=== PATIENT | female | born 1975 | race African-American/Black ===

== ENCOUNTER 2016-09-06 22:19 | Emergency (ER) | payer SELFPAY ==
[2016-09-06 22:52] VITALS: BP 121/73
--- NOTE | 2016-09-06 23:18 | PHYS DOC ---
Past Medical History Past Medical History: No Pertinent History Past Surgical History: Hysterectomy Alcohol Use: None Drug Use: None Adult General Chief Complaint Chief Complaint: ABSCESS HPI HPI Patient is a 41 year old female presents emergency department stating that she has an abscess under her left axillary. She states that she's had this before. She states that she noticed this on Friday. She states it is becoming larger and very tender. She denies any drainage or discharge from the site. Patient denies numbness or tingling into her hand. Review of Systems Review of Systems Constitutional: Denies fever or chills [] Eyes: Denies change in visual acuity, redness, or eye pain [] HENT: Denies nasal congestion or sore throat [] Respiratory: Denies cough or shortness of breath [] Cardiovascular: No additional information not addressed in HPI [] GI: Denies abdominal pain, nausea, vomiting, bloody stools or diarrhea [] : Denies dysuria or hematuria [] Musculoskeletal: Denies back pain or joint pain [] Integument: Denies rash or skin lesions. C/o abscess to the left axilla Neurologic: Denies headache, focal weakness or sensory changes [] Current Medications Current Medications Current Medications Medications (Trade) Dose Ordered Sig/Wilman Start Time Stop Time Status Last Admin Dose Admin Acetaminophen/ Hydrocodone Bitart (Lortab 5/325) 1 tab 1X ONCE 09/06/16 23:30 09/06/16 23:31 DC 09/06/16 23:29 1 TAB Lidocaine/Sodium Bicarbonate (Buffered Lidocaine 1%) 20 ml 1X ONCE 09/06/16 23:30 09/06/16 23:31 DC 09/06/16 23:29 20 ML Allergies Allergies Allergies Coded Allergies Type Severity Reaction Last Updated Verified sulfamethoxazole Allergy Mild 05/06/16 Yes trimethoprim Allergy Mild 05/06/16 Yes Physical Exam Physical Exam Constitutional: Well developed, well nourished, no acute distress, non-toxic appearance. [] HENT: Normocephalic, atraumatic, bilateral external ears normal, oropharynx moist, no oral exudates, nose normal. [] Eyes: PERRLA, EOMI, conjunctiva normal, no discharge. [] Neck: Normal range of motion, no tenderness, supple, no stridor. [] Cardiovascular:Heart rate regular rhythm, no murmur [] Lungs & Thorax: Bilateral breath sounds clear to auscultation [] Skin: Warm, dry, no erythema, no rash. Abscess noted to the left axilla with redness, no drainage or discharge noted. Area appears to be fluctuant Back: No tenderness Extremities: No tenderness, no cyanosis, no clubbing, ROM intact, no edema. [] Neurologic: Alert and oriented X 3, normal motor function, normal sensory function, no focal deficits noted. [] Psychologic: Affect normal, judgement normal, mood normal. [] Current Patient Data Vital Signs Vital Signs Date Time Temp Pulse Resp B/P Pulse Ox O2 Delivery O2 Flow Rate FiO2 09/06/16 22:52 97.8 57 18 100 Room Air 97.8 EKG EKG [] Radiology/Procedures Radiology/Procedures [] Course & Med Decision Making Course & Med Decision Making Pertinent Labs and Imaging studies reviewed. (See chart for details) Instructed the patient to use warm moist packs to the area 4 times a day 20 minutes at a time. Recommended ibuprofen for pain and discomfort. Patient will also be provided hydrocodone. Patient will be placed on clindamycin. Recommended follow-up with surgeon next week for potential further removal of the abscess. Patient agrees with discharge instructions treatment regimens and follow-up recommendations. Since symptoms to return back to emergency department been provided Dragon Disclaimer Dragon Disclaimer This electronic medical record was generated, in whole or in part, using a voice recognition dictation system. Departure Departure Impression: Primary Impression: Abscess of axilla, left Disposition: 01 HOME, SELF-CARE Condition: STABLE Referrals: NO PCP (PCP) PEGGY DE LEON MD Patient Instructions: Abscess, Lnyz-[id number], Incision and Drainage, Care After Additional Instructions: Activity as tolerated. Medications prescribed. Hydrocodone will cause drowsiness do not take any be alert and oriented. Take all the antibiotics as prescribed until they're completely gone. Ibuprofen 800 mg every 8 hours. Follow-up with the surgeon next week. Return back to emergency prior signs symptoms of become worse. Scripts Hydrocodone/Apap 5-325 ([place] 5-325 Tablet)1 Each Tablet1 Tab PO PRN Q6HRS PRN PAIN #10 TAB Prov:ESTRELLITA POZO [employer]OS[employer]IC [employer]ID SUPERVISOR 09/06/16 Clindamycin Hcl 150 Mg Capsule3 Cap PO TID 10 Days Prov:ESTRELLITA POZO PHOSPHORIC [employer]ID SUPERVISOR 09/06/16 Incision and Drainage Incision and Drainage : Site: left axilla Blade Size: 11 I & D Procedure: betadine prep sterile drapes applied Progress 1% lidocaine plain 3 mL was injected into the site. Site was cleaned with Betadine. #11 blade was used to incise the area with thick yellow secretions noted. Dressing applied by nursing staff. ESTRELLITA POZO NP Sep 06, 2016 23:18
[2016-09-06] MEDS ORDERED: HYDROCODONE/APAP 5/325MG TABLET. PO ONE (23:30)
[2016-09-06] MEDS ORDERED: LIDOCAINE 1% / SOD BICARB 8.4% 20 ML VIAL. IJ ONE (23:30)
[2016-09-06] MEDS ORDERED: CLIN-44 PO (23:56)
[2016-09-06] MEDS ORDERED: HYDR-971 PO (23:56)
[2016-09-07] MEDS ORDERED: DIPHTH,PERTUSS(ACELL),TET TOX 0.5 ML DISP.SYRIN. VAX IM ONE
== END 2016-09-07 00:07 | disposition home or self-care (01) ==
LOC: ER 22:19
DX: L02.412 Cutaneous abscess of left axilla (principal); Z88.1 Allergy status to other antibiotic agents
CPT/HCPCS: 10060; 90471; 90715; 99283-25

== ENCOUNTER 2017-05-02 10:24 | Emergency (ER) | payer SELFPAY ==
[~2017-05-02] VITALS: Ht 162.6 cm; Wt 54.4 kg
[~2017-05-02 10:24] MED LIST: CLIN150C14 PO; HYDR-971 PO
[2017-05-02 10:33] VITALS: BP 131/72
--- NOTE | 2017-05-02 10:38 | PHYS DOC ---
Past Medical History Past Medical History: Other Additional Past Medical Histor: cervical cancer Past Surgical History: Hysterectomy Alcohol Use: None Drug Use: None Adult General Chief Complaint Chief Complaint: LOWER BACK PAIN OR INJURY HPI HPI Patient is a 41 year old -[place] female who presents with left-sided back pain that radiates down the left side of her leg. She denies any weakness or numbness in her leg, urinary incontinence. She denies any dysuria, fevers chills. She states she just woke up with this. She never had symptoms like this before. She is not tried anything for her symptoms as of yet. She states it's worse when she tries to sit down and flex at her hip. She points to the left lateral back and then down the back of her legs with the pain radiates to. Review of Systems Review of Systems Constitutional: Denies fever or chills [] Eyes: Denies change in visual acuity, redness, or eye pain [] HENT: Denies nasal congestion or sore throat [] Respiratory: Denies cough or shortness of breath [] Cardiovascular: No additional information not addressed in HPI [] GI: Denies abdominal pain, nausea, vomiting, bloody stools or diarrhea [] : Denies dysuria or hematuria [] Musculoskeletal: Positive for left sided back pain that radiates down the back of her leg. Integument: Denies rash or skin lesions [] Neurologic: Denies headache, focal weakness or sensory changes [] Endocrine: Denies polyuria or polydipsia [] Current Medications Current Medications Current Medications Medications (Trade) Dose Ordered Sig/[facility] Start Time Stop Time Status Last Admin Dose Admin Ibuprofen (Motrin) 600 mg 1X ONCE 05/02/17 11:00 05/02/17 11:01 Allergies Allergies Allergies Coded Allergies Type Severity Reaction Last Updated Verified sulfamethoxazole Allergy Mild 05/06/16 Yes trimethoprim Allergy Mild 05/06/16 Yes Physical Exam Physical Exam Constitutional: Well developed, well nourished, no acute distress, non-toxic appearance. [] HENT: Normocephalic, atraumatic, bilateral external ears normal, oropharynx moist, no oral exudates, nose normal. [] Eyes: PERRLA, EOMI, conjunctiva normal, no discharge. [] Neck: Normal range of motion, no tenderness, supple, no stridor. [] Cardiovascular:Heart rate regular rhythm, no murmur [] Lungs & Thorax: Bilateral breath sounds clear to auscultation [] Abdomen: Bowel sounds normal, soft, no tenderness, no masses, no pulsatile masses. [] Skin: Warm, dry, no erythema, no rash. [] Back: No midline tenderness, left lumbar lateral pain radiates down the back of her left leg, no CVA tenderness. [] Extremities: No tenderness, no cyanosis, no clubbing, ROM intact, no edema. Strength 5 out of 5 bilateral lower extremities with flexion and extension at the hip, knee, ankle. Neurologic: Alert and oriented X 3, normal motor function, normal sensory function, no focal deficits noted. [] Psychologic: Affect normal, judgement normal, mood normal. [] Current Patient Data Vital Signs Vital Signs Date Time Temp Pulse Resp B/P (MAP) Pulse Ox O2 Delivery O2 Flow Rate FiO2 05/02/17 10:33 98.1 72 16 97 Room Air 98.1 EKG EKG [] Radiology/Procedures Radiology/Procedures [] Impressions: Back pain Course & Med Decision Making Course & Med Decision Making Pertinent Labs and Imaging studies reviewed. (See chart for details) Her symptoms are consistent with sciatic type back pain. We'll try ibuprofen 600 mg every 8 hours for next 4-5 days in addition to Flexeril. Return precautions given, patient's agreeable Plan B discharged in stable condition at this time. Dragon Disclaimer Dragon Disclaimer This electronic medical record was generated, in whole or in part, using a voice recognition dictation system. Departure Departure Impression: Primary Impression: Back pain Condition: STABLE Referrals: NO PCP (PCP) Patient Instructions: Sciatica Additional Instructions: Your symptoms sound like a muscle spasm in her back that's going on the back of your leg. You will need take muscle relaxants and ibuprofen for the next several days. If you develop any weakness in your leg, numbness, inability controlling her bowel or bladders, you need to return back to the emergency department immediately. He should follow up with primary care physician within the week. Be careful with Flexeril as it can make you sleepy and impair your judgment. Please don't drive your car while taking this medicine. Make sure to sleepy during the day he can take it before you go to bed or break the tablets in half. Scripts Cyclobenzaprine Hcl (CYCLOBENZAPRINE HCL) 10 Mg Tablet 1 TAB PO TID Y for MUSCLE SPASMS, #30 TAB Prov: KERI JONES MD 05/02/17 Problem Qualifiers Primary Impression: Back pain Back pain location: low back pain Chronicity: acute Back pain laterality: left Sciatica presence: without sciatica Qualified Codes: M54.5 - Low back pain KERI JONES MD May 02, 2017 10:38
[2017-05-02] MEDS ORDERED: CYCLOBENZAPRINE 10 MG TABLET. PO ONE (11:00)
[2017-05-02] MEDS ORDERED: IBUPROFEN 600 MG TABLET. PO ONE (11:00)
[2017-05-02] MEDS ORDERED: CYCL10TA2 PO (11:01)
== END 2017-05-02 11:09 | disposition home or self-care (01) ==
LOC: ER 10:24
DX: M54.5 Low back pain (principal); Z88.2 Allergy status to sulfonamides; Z88.1 Allergy status to other antibiotic agents
CPT/HCPCS: 99283

== ENCOUNTER 2017-08-01 20:12 | Emergency (ER) | payer OTHER ==
[2017-08-01] MEDS: cefTRIAXone IM 250 MG VIAL IM ×2 (21:49)
[2017-08-01] MEDS: AZITHROMYCIN 250 MG TABLET. PO ×2 (21:50)
[2017-08-01] MEDS: metroNIDAZOLE 500 MG TABLET PO ×2 (21:50)
[2017-08-04 16:20] LABS: CHLAMYDIA PROBE Negative (Negative); GC PROBE Negative (Negative)
== END 2017-08-01 22:25 | disposition home or self-care (01) ==
LOC: ER 20:12
DX: Z20.2 Contact with and (suspected) exposure to infections with a predominantly sexual mode of transmission (principal); N76.0 Acute vaginitis; B96.89 Other specified bacterial agents as the cause of diseases classified elsewhere; Z88.2 Allergy status to sulfonamides; Z88.1 Allergy status to other antibiotic agents
CPT/HCPCS: 87491; 87591; 96372; 99284-25; J0696; Q0111; Q0144

== ENCOUNTER 2017-09-01 14:03 | Emergency (ER) | payer OTHER ==
[2017-09-01 15:32] LABS: BILIRUBIN,URINE NEGATIVE (NEG); CLARITY,URINE CLOUDY; COLOR,URINE ORANGE; GLUCOSE,URINE NEGATIVE (NEG); NITRITE,URINE POSITIVE (NEG); PROTEIN,URINE 100 mg/dL (NEG-TRACE)
[2017-09-01 16:01] LABS: BACTERIA,URINE MANY /HPF (0-FEW); WBC,URINE TNTC /HPF (0-4)
== END 2017-09-01 16:15 | disposition home or self-care (01) ==
LOC: ER 14:03
DX: N39.0 Urinary tract infection, site not specified (principal); Z85.41 Personal history of malignant neoplasm of cervix uteri; Z90.710 Acquired absence of both cervix and uterus; Z88.2 Allergy status to sulfonamides; Z88.1 Allergy status to other antibiotic agents
CPT/HCPCS: 81001; 87086; 87186; 99284

== ENCOUNTER 2018-07-17 20:38 | Emergency (ER) | payer OTHER ==
[2017-09-01 15:05] VITALS: BP 122/79
[~2018-07-17] VITALS: Ht 162.6 cm; Wt 49.9 kg
[~2018-07-17 20:38] MED LIST changes: +CIPR500T94 PO; +CYCL10TA2 PO; +HYDR-3164 PO; -HYDR-971 PO; +METR500T PO; +PHEN100T82 PO
[2018-07-17] MEDS ORDERED: AMOX875T PO (21:41)
--- NOTE | 2018-07-17 21:41 | PHYS DOC ---
Past Medical History Past Medical History: Cancer, Other Additional Past Medical Histor: cervical cancer Past Surgical History: Hysterectomy Alcohol Use: None Drug Use: None Adult General Chief Complaint Chief Complaint: EARACHE/EAR PAIN HPI HPI Patient is a 42 year old AA female who presents to the emergency room with complaints of right ear pain, nasal congestion, and throat clearing for the last 5-7 days. She denies any fever, cough, runny nose, nausea, vomiting, diarrhea, rash, sore throat, body aches, or fatigue. Patient reports he she is a smoker about a quarter of a pack a day. She denies any shortness of breath or wheezing. Reports feeling of pressure in her ear, denies any drainage or bleeding from her ear. Review of Systems Review of Systems Constitutional: Denies fever or chills [] Eyes: Denies drainage, redness, or eye pain [] HENT: Denies sore throat; see history of present illness[] Respiratory: Denies cough or wheezing, or shortness of breath [] CGI: Denies abdominal pain, nausea, vomiting, or diarrhea [] Musculoskeletal: Denies back pain or joint pain [] Integument: Denies rash or skin lesions [] Neurologic: Denies headache, focal weakness or sensory changes [] All other systems were reviewed and found to be within normal limits, except as documented in this note. Allergies Allergies Allergies Coded Allergies Type Severity Reaction Last Updated Verified sulfamethoxazole Allergy Mild 05/06/16 Yes trimethoprim Allergy Mild 05/06/16 Yes Physical Exam Physical Exam Constitutional: Well developed, well nourished, no acute distress, non-toxic appearance. [] HENT: Normocephalic, atraumatic, bilateral external ears normal, mild bulging with fluid present in bilateral TMs, no erythema or perforation of bilateral TMs , cobblestone appearance of posterior pharynx, oropharynx moist, no oral exudates, nose normal. [] Eyes: PERRLA, conjunctiva normal, no discharge. [] Neck: Normal range of motion, no tenderness, supple, no stridor. [] Cardiovascular:Heart rate regular rhythm, no murmur [] Lungs & Thorax: Bilateral breath sounds clear to auscultation [] Skin: Warm, dry, no erythema, no rash. [] Extremities: no cyanosis, ROM intact, Neurologic: Alert and oriented X 3, normal motor function, normal sensory function, no focal deficits noted. [] Psychologic: Affect normal, judgement normal, mood normal. [] Current Patient Data Vital Signs Vital Signs Date Time Temp Pulse Resp B/P (MAP) Pulse Ox O2 Delivery O2 Flow Rate FiO2 07/17/18 21:05 98.6 82 16 111/58 (75) 99 Room Air 98.6 EKG EKG [] Radiology/Procedures Radiology/Procedures [] Course & Med Decision Making Course & Med Decision Making Pertinent Labs and Imaging studies reviewed. (See chart for details) [] Dragon Disclaimer Dragon Disclaimer This electronic medical record was generated, in whole or in part, using a voice recognition dictation system. Departure Departure Impression: Primary Impression: Post-nasal drainage Additional Impressions: Acute otitis media with effusion of both ears Otalgia of right ear Disposition: HOME, SELF-CARE Condition: STABLE Referrals: UNKNOWN PCP NAME (PCP) Patient Instructions: Otitis Media, Adult, [id number] Additional Instructions: Fill prescription(s) and use as directed. OTC Flonase 2 sprays each nare daily. Cool mist humidifier in room at bedtime. Tylenol or ibuprofen prn pain/fever. Increase clear fluids. Avoid triggers such as smoke, fragrance, dust, and pollen. Follow-up with your primary care doctor if symptoms persist, return to the ER symptoms worsen. Scripts Amoxicillin (AMOXICILLIN) 875 Mg Tablet 1 TAB PO BID for 7 Days, #14 TAB 0 Refills Prov: KIMBER HUTSON APRN 07/17/18 Problem Qualifiers KIMBER HUTSON APRN Jul 17, 2018 21:41
== END 2018-07-17 21:50 | disposition home or self-care (01) ==
LOC: ER 20:38
DX: H65.191 Other acute nonsuppurative otitis media, right ear (principal); R09.81 Nasal congestion; Z85.89 Personal history of malignant neoplasm of other organs and systems; Z88.1 Allergy status to other antibiotic agents; Z88.2 Allergy status to sulfonamides
CPT/HCPCS: 99283

== ENCOUNTER 2018-11-02 16:52 | Emergency (ER) | payer OTHER ==
[~2018-11-02] VITALS: Ht 162.6 cm; Wt 52.2 kg
[~2018-11-02 16:52] MED LIST changes: +AMOX875T PO
[2018-11-02 17:00] VITALS: BP 99/55
[2018-11-02] MEDS ORDERED: IV NORMAL SALINE 1000ML BAG 1,000 ML IV SCH (17:12)
[2018-11-02] MEDS ORDERED: KETOROLAC 30 MG/ML VIAL. IV ONE (17:15)
[2018-11-02] MEDS ORDERED: ONDANSETRON PF 4 MG/2 ML VIAL. IV ONE (17:15)
[2018-11-02 17:29] LABS: BILIRUBIN,URINE NEGATIVE (NEG); CLARITY,URINE CLEAR; COLOR,URINE YELLOW; NITRITE,URINE NEGATIVE (NEG); PROTEIN,URINE NEGATIVE (NEG-TRACE)
[2018-11-02 17:41] LABS: BASO % 1 % (0-3); CALCIUM 8.8 mg/dL (8.5-10.1); CREATININE 1.1 mg/dL (0.6-1.0); EOS # 0.1 x10^3/uL (0.0-0.7); EOS % 3 % (0-3); GFR 65.3; HEMATOCRIT 35.6 % (36.0-47.0); HEMOGLOBIN 11.9 g/dL (12.0-15.5); LYMPH # 1.7 x10^3/uL (1.0-4.8); LYMPH % 33 % (24-48); MEAN CORPUSCULAR HEMOGLOBIN 32 pg (25-35); MEAN CORPUSCULAR HGB CONC 34 g/dL (31-37); MEAN CORPUSCULAR VOLUME 94 fL (79-100); MONO # 0.8 x10^3/uL (0.0-1.1); MONO % 15 % (0-9); NEUT # 2.6 x10^3uL (1.8-7.7); NEUT % 49 % (31-73); PLATELET COUNT 217 x10^3/uL (140-400); POTASSIUM 3.9 mmol/L (3.5-5.1); RED BLOOD COUNT 3.78 x10^6/uL (3.50-5.40); RED CELL DISTRIBUTION WIDTH 13.5 % (11.5-14.5); WHITE BLOOD COUNT 5.3 x10^3/uL (4.0-11.0)
[2018-11-02 17:47] LABS: ALBUMIN 3.7 g/dL (3.4-5.0); ALBUMIN/GLOBULIN RATIO 1.1 (1.0-1.7); TOTAL BILIRUBIN 0.4 mg/dL (0.2-1.0); TOTAL PROTEIN 7.1 g/dL (6.4-8.2)
[2018-11-02 17:47] LABS: BACTERIA,URINE 0 /HPF (0-FEW); RBC,URINE 0 /HPF (0-2); SQUAMOUS EPITHELIAL CELL,UR OCC /LPF; WBC,URINE OCC /HPF (0-4)
[2018-11-02] MEDS ORDERED: IV NORMAL SALINE 1000ML BAG 1,000 ML IV ONE (18:00)
[2018-11-02] MEDS ORDERED: NITR100C62 PO (18:25)
--- NOTE | 2018-11-02 18:25 | PHYS DOC ---
Past Medical History Past Medical History: Cancer, Other Additional Past Medical Histor: cervical cancer Past Surgical History: Hysterectomy Alcohol Use: None Drug Use: None Adult General Chief Complaint Chief Complaint: ABDOMINAL PAIN HPI HPI Patient is a 43 year old female presents for evaluation of right flank pain that radiates down through her abdomen. She denies nausea, vomiting or fevers. States the pain started today and got so bad she had to leave work and come to the emergency room. No signs of distress upon arrival. Denies vaginal symptoms. Reports some dysuria. Review of Systems Review of Systems Constitutional: Denies fever or chills [] Eyes: Denies change in visual acuity, redness, or eye pain [] HENT: Denies nasal congestion or sore throat [] Respiratory: Denies cough or shortness of breath [] Cardiovascular: No additional information not addressed in HPI [] GI: Reports abdominal pain, denies nausea, vomiting, bloody stools or diarrhea [] : REPorts mild dysuria denies hematuria [] Musculoskeletal: Denies back pain or joint pain [] Integument: Denies rash or skin lesions [] Neurologic: Denies headache, focal weakness or sensory changes [] Endocrine: Denies polyuria or polydipsia [] All other systems were reviewed and found to be within normal limits, except as documented in this note. Current Medications Current Medications Current Medications Medications (Trade) Dose Ordered Sig/Wilman Start Time Stop Time Status Last Admin Dose Admin Ketorolac Tromethamine (Toradol 30mg Vial) 15 mg 1X ONCE 11/02/18 17:15 11/02/18 17:17 DC 11/02/18 17:30 15 MG Ondansetron HCl (Zofran) 4 mg 1X ONCE 11/02/18 17:15 11/02/18 17:17 DC 11/02/18 17:29 4 MG Sodium Chloride 1,000 ml @ 1,000 mls/hr 1X ONCE 11/02/18 18:00 11/02/18 18:59 DC Allergies Allergies Allergies Coded Allergies Type Severity Reaction Last Updated Verified sulfamethoxazole Allergy Mild 05/06/16 Yes trimethoprim Allergy Mild 05/06/16 Yes Physical Exam Physical Exam Constitutional: Well developed, well nourished, no acute distress, non-toxic appearance. [] HENT: Normocephalic, atraumatic, bilateral external ears normal, oropharynx moist, no oral exudates, nose normal. [] Eyes: PERRLA, EOMI, conjunctiva normal, no discharge. [] Neck: Normal range of motion, no tenderness, supple, no stridor. [] Cardiovascular:Heart rate regular rhythm, no murmur [] Lungs & Thorax: Bilateral breath sounds clear to auscultation [] Abdomen: TTP SUPRAPUBIC [] Skin: Warm, dry, no erythema, no rash. [] Back: No tenderness, no CVA tenderness. [] Extremities: No tenderness, no cyanosis, no clubbing, ROM intact, no edema. [] Neurologic: Alert and oriented X 3, normal motor function, normal sensory function, no focal deficits noted. [] Psychologic: Affect normal, judgement normal, mood normal. [] Current Patient Data Vital Signs Vital Signs Date Time Temp Pulse Resp B/P (MAP) Pulse Ox O2 Delivery O2 Flow Rate FiO2 11/02/18 17:00 98.1 69 16 99/55 (70) 100 Room Air 98.1 Lab Values Laboratory Tests Test 11/02/18 17:05 11/02/18 17:10 11/02/18 17:15 Urine Color Yellow Urine Clarity Clear Urine pH 6.0 Urine Specific [place] 1.020 Urine Protein Negative mg/dL (NEG-TRACE) Urine Glucose (UA) Negative mg/dL (NEG) Urine Ketones (Stick) Negative mg/dL (NEG) Urine Blood Negative (NEG) Urine Nitrite Negative (NEG) Urine Bilirubin Negative (NEG) Urine Urobilinogen Dipstick 1.0 mg/dL (0.2 mg/dL) Urine Leukocyte Esterase Negative (NEG) Urine RBC 0 /HPF (0-2) Urine WBC Occ /HPF (0-4) Urine Squamous Epithelial Cells Occ /LPF Urine Bacteria 0 /HPF (0-FEW) Urine Mucus Mod /LPF POC Urine HCG, Qualitative Hcg negative (Negative) White Blood Count 5.3 x10^3/uL (4.0-11.0) Red Blood Count 3.78 x10^6/uL (3.50-5.40) Hemoglobin 11.9 g/dL (12.0-15.5) L Hematocrit 35.6 % (36.0-47.0) L Mean Corpuscular Volume 94 fL (79-100) Mean Corpuscular Hemoglobin 32 pg (25-35) Mean Corpuscular Hemoglobin Concent 34 g/dL (31-37) Red Cell Distribution Width 13.5 % (11.5-14.5) Platelet Count 217 x10^3/uL (140-400) Neutrophils (%) (Auto) 49 % (31-73) Lymphocytes (%) (Auto) 33 % (24-48) Monocytes (%) (Auto) 15 % (0-9) H Eosinophils (%) (Auto) 3 % (0-3) Basophils (%) (Auto) 1 % (0-3) Neutrophils # (Auto) 2.6 x10^3uL (1.8-7.7) Lymphocytes # (Auto) 1.7 x10^3/uL (1.0-4.8) Monocytes # (Auto) 0.8 x10^3/uL (0.0-1.1) Eosinophils # (Auto) 0.1 x10^3/uL (0.0-0.7) Basophils # (Auto) 0.0 x10^3/uL (0.0-0.2) Sodium Level 139 mmol/L (136-145) Potassium Level 3.9 mmol/L (3.5-5.1) Chloride Level 102 mmol/L (98-107) Carbon Dioxide Level 29 mmol/L (21-32) Anion Gap 8 (6-14) Blood Urea Nitrogen 14 mg/dL (7-20) Creatinine 1.1 mg/dL (0.6-1.0) H Estimated GFR (Cockcroft-Gault) 65.3 BUN/Creatinine Ratio 13 (6-20) Glucose Level 89 mg/dL (70-99) Calcium Level 8.8 mg/dL (8.5-10.1) Total Bilirubin 0.4 mg/dL (0.2-1.0) Aspartate Amino Transferase (AST) 14 U/L (15-37) L Alanine Aminotransferase (ALT) 16 U/L (14-59) Alkaline Phosphatase 62 U/L (46-116) Total Protein 7.1 g/dL (6.4-8.2) Albumin 3.7 g/dL (3.4-5.0) Albumin/Globulin Ratio 1.1 (1.0-1.7) Lipase 273 U/L (73-393) Laboratory Tests 11/02/18 17:15 Laboratory Tests 11/02/18 17:15 EKG EKG [] Radiology/Procedures Radiology/Procedures [] Course & Med Decision Making Course & Med Decision Making Pertinent Labs and Imaging studies reviewed. (See chart for details) [Patient feeling better after IV fluids, discussed creatinine slightly elevated at 1.1, recommend follow-up with primary care doctor, she does have occasional white blood cells in the urine, we'll treat with antibiotics and have her follow-up with primary care doctor for repeat urine. Vital signs are stable, patient does not appear toxic, she stable for discharge home.] Dragon Disclaimer Dragon Disclaimer This electronic medical record was generated, in whole or in part, using a voice recognition dictation system. Departure Departure Impression: Primary Impression: UTI (urinary tract infection) Disposition: HOME, SELF-CARE Referrals: UNKNOWN PCP NAME (PCP) Patient Instructions: Urinary Tract Infection, [id number] Scripts Nitrofurantoin Monohyd/M-Cryst (MACROBID 100 MG CAPSULE) 100 Mg Capsule 1 CAP PO BID, #10 CAP Prov: MARGUERITE REYES APRN 11/02/18 Problem Qualifiers Primary Impression: UTI (urinary tract infection) Urinary tract infection type: acute cystitis Hematuria presence: without hematuria Qualified Codes: N30.00 - Acute cystitis without hematuria MARGUERITE REYES APRN Nov 02, 2018 18:25
== END 2018-11-02 19:10 | disposition home or self-care (01) ==
LOC: ER 16:52
DX: N30.00 Acute cystitis without hematuria (principal); Z90.710 Acquired absence of both cervix and uterus; Z88.1 Allergy status to other antibiotic agents; Z88.2 Allergy status to sulfonamides
CPT/HCPCS: 36415; 80053; 81001; 81025; 83690; 85025; 96374; 96375; 99284; J1885; J2405; J7030

== ENCOUNTER 2020-07-24 09:46 | Emergency (ER) | payer SELFPAY ==
[~2020-07-24] VITALS: Ht 162.6 cm; Wt 52.0 kg
[~2020-07-24 09:46] MED LIST changes: -CLIN150C14 PO; +CLIN150C15 PO; +NITR100C62 PO
[2020-07-24 10:00] VITALS: BP 125/59
--- NOTE | 2020-07-24 10:19 | PHYS DOC ---
Past Medical History Past Medical History: Cancer, Other Additional Past Medical Histor: cervical cancer Past Surgical History: Hysterectomy Smoking Status: Current Every Day Smoker Alcohol Use: None Drug Use: None General Adult EDM: Chief Complaint: MULTIPLE COMPLAINTS HPI: HPI: Patient is a 44 year old female reports emergency department with complaints that she cut her right pinky finger when a knife fell off the table and fell to the floor cutting her pinky finger on the way down. Patient states that her tetanus has been longer than 5 years ago. Patient states that she did not think it was very deep and so she washed it with soap and water and is placed a Band- Aid over it. Patient states this morning she woke back up and looked at her finger and it was still bleeding some so she came in today for evaluation of the laceration on her pinky finger. Patient also complains of a rash to her bilateral arms that she noticed when she woke up today as well. Patient states that her pain is a 5/10 on a 1-10 pain scale. Patient states she has not taken anything for the pain. Patient denies consumption of any new foods, denies using any new soaps, or using any new cleaning products in her home. Patient denies anyone else in her home having the same symptoms that she. She denies recent fever or chills, cough, shortness of breath, chest congestion, chest pains, nausea, vomiting, diarrhea, constipation. Patient denies any increased thirst or increased urination. Patient denies any other physical symptoms or physical complaints. Patient has asked for a work excuse for tomorrow. Review of Systems: Review of Systems: 14 body systems of review of systems have been reviewed. See HPI for pertinent positives and negative responses, otherwise all other systems are negative, nonpertinent or noncontributory. Heart Score: Risk Factors: Risk Factors: DM, Current or recent (<one month) smoker, HTN, HLP, family history of CAD, obesity. Risk Scores: Score 0 - 3: 2.5% MACE over next 6 weeks - Discharge Home Score 4 - 6: 20.3% MACE over next 6 weeks - Admit for Clinical Observation Score 7 - 10: 72.7% MACE over next 6 weeks - Early Invasive Strategies Allergies: Allergies: Allergies Coded Allergies Type Severity Reaction Last Updated Verified sulfamethoxazole Allergy Mild 05/06/16 Yes trimethoprim Allergy Mild 05/06/16 Yes Physical Exam: PE: Constitutional: Well developed, well nourished, no acute distress, non-toxic appearance. HENT: Normocephalic, atraumatic, bilateral external ears normal, oropharynx moist, no oral exudates, nose normal. Eyes: PERRLA, EOMI, conjunctiva normal, no discharge. Neck: Normal range of motion, no tenderness, supple, no stridor. Cardiovascular:Heart rate regular rhythm, no murmur Lungs & Thorax: Bilateral breath sounds clear to auscultation Abdomen: Bowel sounds normal, soft, no tenderness, no masses, no pulsatile masses. Skin: Warm, dry, no erythema, fine papular erythemic rash to AC area and forearms bilateral arms with complaint of pruritus without drainage, no vesicles appreciated. Right pinky finger distal phalanx laceration that does not involve finger nail or nailbed, lateral medial approximately 0.25 cm partial thickness nonbleeding without drainage. Back: No tenderness, no CVA tenderness. Extremities: No tenderness, no cyanosis, no clubbing, ROM intact, no edema. Neurologic: Alert and oriented X 3, normal motor function, normal sensory func tion, no focal deficits noted. Psychologic: Affect normal, judgement normal, mood normal. Current Patient Data: Vital Signs: Vital Signs Date Time Temp Pulse Resp B/P (MAP) Pulse Ox O2 Delivery O2 Flow Rate FiO2 07/24/20 10:00 98.9 74 18 125/59 (81) 100 Room Air 98.9 EKG: EKG: [] Radiology/Procedures: Radiology/Procedures: [] Course & Med Decision Making: Course & Med Decision Making Pertinent Labs and Imaging studies reviewed. (See chart for details) 44-year-old female presents emergency department for evaluation of a laceration on her right pinky finger. Also evaluation of her skin rash she noticed this morning, patient was also asking for a work cues for tomorrow off. Examination of the laceration consistent with patient complaint of knife wound nonrepairable related to greater than 12 hours since incident, patient states she washed with soap and water, there is no infectious process noted. We will cleanse again with soap and water and dressed with bacitracin and Band-Aid. Patient's papular rash with complaints pruritus consistent with contact dermatitis from unknown sources patient reports she has not had any new foods or contact with any new soaps or cleaning products or close. The patient was in no respiratory distress the patient was nontoxic appearance, the patient was in no apparent distress, there was no airway compromise, there were no signs and symptoms of anaphylaxis. Patient's tetanus was brought up to date today in the emergency department, negar davis was treated for her pain with p.o. Tylenol 650 mg p.o., will give work excuse for 1 day, will prescribe hydrocortisone cream for contact dermatitis. Patient gave verbal understanding of discharge home instructions, prescription use, follow-up with primary care doctor soon for further evaluation, return to emergency department precautions and concerns, patient discharged home without incident. Impression: #1 finger laceration #2 tetanus brought up-to-date in the emergency department today #3 contact dermatitis #4 pruritus Dragon Disclaimer: Dragon Disclaimer: This electronic medical record was generated, in whole or in part, using a voice recognition dictation system. Departure Departure Impression: Primary Impression: Finger laceration Qualified Codes: S61.216A - Laceration without foreign body of right little finger without damage to nail, initial encounter Additional Impressions: Contact dermatitis Qualified Codes: L25.9 - Unspecified contact dermatitis, unspecified cause Pruritus Need for vaccination for DTaP Referrals: UNKNOWN PCP NAME (PCP) Patient Instructions: Rash, Wound Care, Cdgh-to-[facility]o Additional Instructions: Take prescribed medications as directed, you can use [id number] Benadryl for continued itching, follow-up with your primary care doctor if rash is persistent and continues, return to emergency department for worsening symptoms or other concerns. Keep your pinky finger laceration clean and dry, use antibiotic ointment and Band-Aid until healed, this was not repaired today related to the length of time from initial injury. EMERGENCY DEPARTMENT GENERAL DISCHARGE INSTRUCTIONS Thank you for coming to [facility] Emergency Department (ED) today and trusting us with you care. We trust that you had a positive experience in our Emergency Department. If you wish to speak to the department management, you may call the Director at [phone]. YOUR FOLLOW UP INSTRUCTIONS ARE FOLLOWS: 1. Do you have a private Doctor? If you do not have a private doctor, please ask for a resource list of physicians or clinics that may be able to assist you with follow up care. 2. The Emergency Physicain has interpreted your x-rays. The X-Ray specialist will also review them. If there is a change in the findings, you will be notified in 48 hours when at all possible. 3. A lab test or culture has been done, your results will be reviewed and you will be notified if you need a change in treatment. ADDITIONAL INSTRUCTIONS AND INFORMATION: 1. Your care today has been supervised by a physician who is specially trained in emergency care. Many problems require more than one evaluation for a complete diagnosis and treatment. We recommend that you schedule your follow up appointment as recommended to ensure complete treatment of you illness or injury. If you are unable to obtain follow up care and continue to have a problem, or if your condition worsens, we recommend that you return to the ED. 2. We are not able to safely determine your condition over the phone nor are we able to give sound medical advice over the phone. For these safety reasons, if you call for medical advice we will ask you to come to the ED for further evaluation. 3. If you have any questions regarding these discharge instructions please call the ED at [phone]. SAFETY INFORMATION: In the interest of safety, wellness, and injury prevention; we encourage you to wear your sealbelt, if you smoke; quite smoking, and we encourage family to use a protective helmet for bicycling and other sporting events that present an increased risk for head injury. IF YOUR SYMPTOMS WORSEN OR NEW SYMPTOMS DEVELOP, OR YOU HAVE CONCERNS ABOUT YOUR CONDITION; OR IF YOUR CONDITION WORSENS WHILE YOU ARE WAITING FOR YOUR FOLLOW UP APPOINTMENT; EITHER CONTACT YOUR PRIMARY CARE DOCTOR, THE PHYSICIAN WHOSE NAME AND NUMBER YOU WERE GIVEN, OR RETURN TO THE ED IMMEDIATELY. Scripts Hydrocortisone Acetate (HYDROCORTISONE) 28 Gm Oint...g. 28 GM TP BID for rash, #1 MISC 0 Refills Prov: [employer] 07/24/20 [employer] Jul 24, 2020 10:19
[2020-07-24] MEDS ORDERED: ACETAMINOPHEN 325 MG TABLET. PO ONE (10:30)
[2020-07-24] MEDS ORDERED: BACITRACIN TOPICAL OINT PACKET. TP ONE (10:30)
[2020-07-24] MEDS ORDERED: DIPH,PERTUSS(ACELL),TET VAC/PF 0.5 ML SYRINGE. VAX IM ONE (10:30)
[2020-07-24] MEDS ORDERED: HYDR28OI2 TP (11:08)
== END 2020-07-24 11:32 | disposition home or self-care (01) ==
LOC: ER 09:46
DX: S61.216A Laceration without foreign body of right little finger without damage to nail, initial encounter (principal); L25.9 Unspecified contact dermatitis, unspecified cause; L29.8 Other pruritus; F17.200 Nicotine dependence, unspecified, uncomplicated; Z88.1 Allergy status to other antibiotic agents; Z88.2 Allergy status to sulfonamides; W26.0XXA Contact with knife, initial encounter; Y93.89 Activity, other specified; Y92.89 Other specified places as the place of occurrence of the external cause; Y99.8 Other external cause status
CPT/HCPCS: 90471; 90715; 99283